=== PATIENT | male | born 1960 | race Two or more races ===

== ENCOUNTER 2016-09-05 16:17 | Emergency (ER) | payer OTHER ==
[2016-09-05 16:25] VITALS: BP 151/90; PULSE 75; RESP 18; TEMP 97.5; O2SAT 97
--- NOTE | 2016-09-05 16:53 | C.PDOC ---
History Of Present Illness A 56 year old male presents to the ER c/o occasional right testicular pain for weeks. Patient notes this is the same symptoms as experienced before. Patient denies nausea, vomiting, diarrhea, fever, chills, penile discharge or any other complaints. Time Seen by Provider: 09/05/16 16:41 Chief Complaint (Nursing): Male Genitourinary History Per: Patient History/Exam Limitations: no limitations Onset/Duration Of Symptoms: Days Current Symptoms Are (Timing): Still Present Severity: Mild Associated Symptoms: denies: Fever, Chills Recent travel outside of the [place]: No Additional History Per: Patient Past Medical History Reviewed: Historical Data, Nursing Documentation, Vital Signs Vital Signs: Last Vital Signs Temp 97.5 F L 09/05/16 16:24 Pulse 75 09/05/16 16:24 Resp 18 09/05/16 16:24 BP 151/90 H 09/05/16 16:24 Pulse Ox 97 09/05/16 20:51 - Medical History PMH: Kidney Stones Family History: States: Unknown Family Hx - Social History Hx Tobacco Use: No (DENIED) Hx Alcohol Use: No Hx Substance Use: Yes - Immunization History Hx Tetanus Toxoid Vaccination: No Hx Influenza Vaccination: No Hx Pneumococcal Vaccination: No Review Of Systems Except As Marked, All Systems Reviewed And Found Negative. Constitutional: Negative for: Fever, Chills Gastrointestinal: Negative for: Nausea, Vomiting, Diarrhea Genitourinary: Positive for: Other (Testicular pain) Physical Exam - Physical Exam Appears: Non-toxic, No Acute Distress Skin: Warm, Dry Head: Atraumatic, Normacephalic Eye(s): bilateral: Normal Inspection Cardiovascular: Rhythm Regular, No Murmur Respiratory: Normal Breath Sounds, No Rales, No Rhonchi, No Wheezing Male Genital: No Testicular Tenderness, No Testicular Swelling, No Scrotal Swelling, No Circumcised (Uncircumsized), No Other (Penile discharge) Neurological/Psych: Oriented x3, Normal Speech, Normal Cognition ED Course And Treatment O2 Sat by Pulse Oximetry: 97 (RA) Pulse Ox Interpretation: Normal - CT Scan/US Testicular Ultrasound Other Rad Studies (CT/US): Read By Radiologist, Radiology Report Reviewed CT/US Interpretation: IMPRESSION: Complex appearing bilateral epididymal cysts with septations measuring approximately 4.1 cm on the left and 1.4 cm on the right. Bilateral small hydroceles. Bilateral varicoceles. Medical Decision Making Medical Decision Making: Plans: -Motrin PO -Reassess and disposition vague discomfort R>L epididimalk areas Testicular US, no masses benign epididimyal cysts outpatient f/u with Urology- Dr Razo Wire Taper Disposition Doctor Will See Patient In The: Office Counseled Patient/Family Regarding: Studies Performed, Diagnosis - Disposition Referrals: [facility] [Outside] [facility] [Outside] Jonathan Razo Jr., MD [Staff Provider] - Disposition: HOME/ ROUTINE Disposition Time: 18:33 Condition: GOOD Additional Instructions: motrin 400-600 mg every 6 hours as needed for scrotal/testicular discomfort Follow-up with Dr. Razo- Urologist- as needed Instructions: Testicle Pain (ED) - Clinical Impression Clinical Impression: Testicular/scrotal pain - Scribe Statement The provider has reviewed the documentation as recorded by the Scribe Cole morales All medical record entries made by the Scribe were at my direction and personally dictated by me. I have reviewed the chart and agree that the record accurately reflects my personal performance of the history, physical exam, medical decision making, and the department course for this patient. I have also personally directed, reviewed, and agree with the discharge instructions and disposition.
[2016-09-05 17:13] LABS: RBC URINE < 1 /hpf (0-3); URINE BILIRUBIN NEGATIVE (NEGATIVE); URINE BLOOD NEGATIVE (NEGATIVE); URINE COLOR Yellow (YELLOW); URINE GLUCOSE (UA) NORMAL (Normal); URINE KETONE NEGATIVE (NEGATIVE); URINE LEUKOCYTE ESTERASE NEG Leu/uL (Negative); URINE PROTEIN NEGATIVE (NEGATIVE); URINE UROBILINOGEN NORMAL mg/dL (0.2-1.0); WBC URINE 1 /hpf (0-5)
--- NOTE | 2016-09-05 18:30 | US ---
HISTORY: R epididymal discomfort x 1 week TECHNIQUE: Realtime sonography through the scrotum with color and doppler flow. COMPARISON: None Available. FINDINGS: RIGHT TESTICLE: Measures 4.1 x 2.7 x 3.5 cm. Homogeneous echotexture. Blood flow is demonstrated. RIGHT EPIDIDYMIS: Complex appearing epididymal cyst with septation measuring approximately 1.1 x 1.2 x 1.4 cm. LEFT TESTICLE: Measures 3.9 x 2.3 x 3.4 cm. Homogeneous echotexture. Blood flow is demonstrated. LEFT EPIDIDYMIS: 4.1 x 1.7 x 3.5 cm complex appearing epididymal cyst with septations. HYDROCELE: Bilateral hydroceles. VARICOCELE: Bilateral varicoceles. OTHER FINDINGS: None. IMPRESSION: Complex appearing bilateral epididymal cysts with septations measuring approximately 4.1 cm on the left and 1.4 cm on the right. Bilateral small hydroceles. Bilateral varicoceles.
== END 2016-09-05 18:53 | disposition home or self-care (01) ==
LOC: C.ER 16:17
DX: N50.811 Right testicular pain (principal); N50.82 Scrotal pain

== ENCOUNTER 2017-09-26 11:28 | Emergency (ER) | payer OTHER ==
--- NOTE | 2017-09-26 11:55 | C.PDOC ---
History Of Present Illness 57 y/o male presents to ED with c/o blood in urine since yesterday. Notes pt the he also left some penile tingling last night. Patient denies back pain, dysuria, abdominal pain, penile discharge or any other complaints at this time. Notes h/o similar episode a few years ago with self resolution. Also notes h/o kidney stones but this feels different. Pt denies possibility of STDs. Time Seen by Provider: 09/26/17 11:35 Chief Complaint (Nursing): Male Genitourinary History Per: Patient History/Exam Limitations: no limitations Onset/Duration Of Symptoms: Days Current Symptoms Are (Timing): Still Present Past Medical History Reviewed: Historical Data, Nursing Documentation, Vital Signs Vital Signs: Last Vital Signs Temp 98.7 F 09/26/17 14:00 Pulse 52 L 09/26/17 14:00 Resp 18 09/26/17 14:00 BP 149/80 09/26/17 14:00 Pulse Ox 99 09/26/17 18:58 - Medical History PMH: Kidney Stones Surgical History: No Surg Hx Family History: States: No Known Family Hx - Social History Hx Tobacco Use: No (DENIED) Hx Alcohol Use: No Hx Substance Use: Yes - Immunization History Hx Tetanus Toxoid Vaccination: No Hx Influenza Vaccination: No Hx Pneumococcal Vaccination: No Review Of Systems Constitutional: Negative for: Fever, Chills Gastrointestinal: Negative for: Nausea, Vomiting Genitourinary: Positive for: Hematuria. Negative for: Dysuria, Penile Discharge Musculoskeletal: Negative for: Back Pain Skin: Negative for: Rash Physical Exam - Physical Exam Appears: Non-toxic, No Acute Distress Skin: Warm, Dry, No Rash Head: Atraumatic, Normacephalic Eye(s): bilateral: Normal Inspection, EOMI Nose: Normal Oral Mucosa: Moist Neck: Normal ROM, Supple Chest: Symmetrical Cardiovascular: Rhythm Regular Respiratory: Normal Breath Sounds, No Rales, No Rhonchi, No Wheezing Gastrointestinal/Abdominal: Soft, No Tenderness, No Guarding, No Rebound Back: No CVA Tenderness, No Paraspinal Tenderness Neurological/Psych: Oriented x3, Normal Speech, Normal Cognition ED Course And Treatment - Laboratory Results Result Diagrams: 09/26/17 12:23 09/26/17 12:23 O2 Sat by Pulse Oximetry: 99 (RA) Pulse Ox Interpretation: Normal - CT Scan/US CT abd/pelvis Other Rad Studies (CT/US): Read By Radiologist, Radiology Report Reviewed CT/US Interpretation: PROCEDURE: CT Abdomen and Pelvis without intravenous contrast. HISTORY: pain. Hematuria. COMPARISON: None. TECHNIQUE: Without contrast.. Contrast dose: 0. Radiation dose: Total exam DLP = 1044.55 mGy- cm. This CT exam was performed using one or more of the following dose reduction techniques: Automated exposure control, adjustment of the mA and/or kV according to patient size, and/or use of iterative reconstruction technique. FINDINGS: LOWER THORAX: Unremarkable. LIVER: Diffusely diminished attenuation consistent with fatty infiltration. No mass. No biliary dilatation. Smooth contour. Mild hepatomegaly. The liver measures 20 cm craniocaudal. GALLBLADDER AND BILE DUCTS: Unremarkable. PANCREAS: Unremarkable. No gross lesion or ductal dilatation. SPLEEN: Unremarkable. ADRENALS: Unremarkable. No mass. KIDNEYS AND URETERS: Left upper pole 2.1 cm cortical cyst. Mid left renal nonobstructing 7 mm calculus. Left lower pole nonobstructing 4 mm calculus. Right lower pole nonobstructing 9 mm calculus. No hydronephrosis. VASCULATURE: Unremarkable. No aortic aneurysm. BOWEL: Sigmoid diverticulosis. No evidence of diverticulitis. No bowel obstruction. Scattered colonic diverticulae. No other abnormal bowel loops. APPENDIX: Unremarkable. Normal appendix. PERITONEUM: Unremarkable. No free fluid. No free air. LYMPH NODES: Unremarkable. No enlarged lymph nodes. BLADDER: Suboptimally distended. No gross abnormality. REPRODUCTIVE: Normal prostate. BONES: No acute fracture. OTHER FINDINGS: None. IMPRESSION: Bilateral nonobstructing renal calculi. No hydronephrosis. Fatty liver with mild hepatomegaly. Progress Note: Blood work, UA, Urine culture sent . On re-evaluation, pt notes he feels well. Afebrile. No back pain. Tolerating PO. No abdominal pain. Pt instructed to follow up with urology for further evaluation. Case discussed with Dr Armendariz, agreed upon plan, treatment and discharge. Disposition - Disposition Referrals: Jonathan Razo Jr., MD [Staff Provider] - Disposition: HOME/ ROUTINE Disposition Time: 13:52 Condition: STABLE Additional Instructions: Follow up with primary medical doctor in 1-3 days without fail for further evaluation. Take medications as prescribed. Return to the emergency department at any time if symptoms persist or worsen. Prescriptions: Sulfamethoxazole/Trimethoprim [Bactrim DS 800 mg-160 mg] 1 tab PO BID #14 tab Instructions: Blood in the Urine (Hematuria) in Adults Forms: [employer] (Yoruba) - Clinical Impression Clinical Impression: Hematuria - PA / CORPORATE ACCOUNTING MANAGER / Resident Statement MD/DO has reviewed & agrees with the documentation as recorded. - Scribe Statement The provider has reviewed the documentation as recorded by the Talitaibsherin Grace All medical record entries made by the Komal were at my direction and personally dictated by me. I have reviewed the chart and agree that the record accurately reflects my personal performance of the history, physical exam, medical decision making, and the department course for this patient. I have also personally directed, reviewed, and agree with the discharge instructions and disposition.
[2017-09-26 12:29] LABS: BASO % 0.6 % (0.0-2.0); EOS # 0.1 K/uL (0.0-0.7); EOS % 1.5 % (0.0-4.0); HEMOGLOBIN 13.5 g/dL (12.0-18.0); LYMPH # 2.5 K/uL (1.0-4.3); LYMPH % 31.8 % (20.0-40.0); MEAN CELL VOLUME 87.2 fL (80.0-94.0); MEAN CORPUSCULAR HGB CONC 34.4 g/dL (33.0-37.0); MEAN PLATELET VOLUME 9.4 fL (7.2-11.7); MONO # 0.4 K/uL (0.0-0.8); MONO % 5.8 % (0.0-10.0); NEUT # 4.7 K/uL (1.8-7.0); NEUT % 60.3 % (50.0-75.0); NRBC % 0.1 % (0.0-2.0); RBC 4.51 Mil/uL (4.40-5.90); RED CELL DISTRIBUTION WIDTH 14.1 % (11.5-14.5); WHITE BLOOD COUNT 7.7 K/uL (4.8-10.8)
[2017-09-26 12:39] LABS: ALB/GLOB RATIO 1.2 (1.0-2.1); ALBUMIN 4.2 g/dL (3.5-5.0); CALCIUM 9.4 mg/dl (8.6-10.4); GFR AFRICAN-AMERICAN > 60; GFR NON-AFRICAN AMERICAN > 60
[2017-09-26 12:45] LABS: ALT/SGPT 40 U/L (21-72); AST/SGOT 39 U/L (17-59); BLOOD UREA NITROGEN 15 mg/dL (9-20)
[2017-09-26 12:54] LABS: SQUAMOUS EPITHIAL < 1 /hpf (0-5); URINE BILIRUBIN NEGATIVE (NEGATIVE); URINE BLOOD 3+ (NEGATIVE); URINE CLARITY Hazy (Clear); URINE COLOR Yellow (YELLOW); URINE GLUCOSE (UA) NORMAL (Normal); URINE LEUKOCYTE ESTERASE NEG Leu/uL (Negative); URINE PROTEIN NEGATIVE (NEGATIVE); URINE UROBILINOGEN NORMAL mg/dL (0.2-1.0)
--- NOTE | 2017-09-26 13:21 | CT ---
PROCEDURE: CT Abdomen and Pelvis without intravenous contrast HISTORY: pain. Hematuria. COMPARISON: None. TECHNIQUE: Without contrast.. Contrast dose: 0 Radiation dose: Total exam DLP = 1044.55 mGy-cm. This CT exam was performed using one or more of the following dose reduction techniques: Automated exposure control, adjustment of the mA and/or kV according to patient size, and/or use of iterative reconstruction technique. FINDINGS: LOWER THORAX: Unremarkable. LIVER: Diffusely diminished attenuation consistent with fatty infiltration. No mass. No biliary dilatation. Smooth contour. Mild hepatomegaly. The liver measures 20 cm craniocaudal. GALLBLADDER AND BILE DUCTS: Unremarkable. PANCREAS: Unremarkable. No gross lesion or ductal dilatation. SPLEEN: Unremarkable. ADRENALS: Unremarkable. No mass. KIDNEYS AND URETERS: Left upper pole 2.1 cm cortical cyst. Mid left renal nonobstructing 7 mm calculus. Left lower pole nonobstructing 4 mm calculus. Right lower pole nonobstructing 9 mm calculus. No hydronephrosis. VASCULATURE: Unremarkable. No aortic aneurysm. BOWEL: Sigmoid diverticulosis. No evidence of diverticulitis. No bowel obstruction. Scattered colonic diverticulae. No other abnormal bowel loops. APPENDIX: Unremarkable. Normal appendix. PERITONEUM: Unremarkable. No free fluid. No free air. LYMPH NODES: Unremarkable. No enlarged lymph nodes. BLADDER: Suboptimally distended. No gross abnormality. REPRODUCTIVE: Normal prostate BONES: No acute fracture. OTHER FINDINGS: None. IMPRESSION: Bilateral nonobstructing renal calculi. No hydronephrosis. Fatty liver with mild hepatomegaly.
[2017-09-26 14:01] VITALS: BP 149/80; PULSE 52; RESP 18; TEMP 98.7
[2017-09-26 18:58] VITALS: O2SAT 99
== END 2017-09-26 14:18 | disposition home or self-care (01) ==
LOC: C.ER 11:28
DX: R31.9 Hematuria, unspecified (principal)